=== PATIENT | female | born 1960 | race Caucasian/White ===

== ENCOUNTER 2022-04-05 10:07 | Emergency (ER) | payer SELFPAY ==
[~2022-04-05 10:07] MED LIST: MACROBID 100 M100 MG PO
[2022-04-05 10:52] LABS: HEMOGLOBIN 11.9 gm/dl (12.3-15.3); RED BLOOD COUNT 3.86 M/UL (4.00-5.10); WHITE BLOOD COUNT 2.9 K/UL (4.5-11.0)
[2022-04-05 12:02] LABS: BUN/CREATININE RATIO 22 (0-10)
== END 2022-04-05 15:31 | disposition short-term general hospital (02) ==
LOC: ER1 10:07
PROVIDERS: Physician Assistant
DX: I62.00 Nontraumatic subdural hemorrhage, unspecified (principal); D69.6 Thrombocytopenia, unspecified; D72.819 Decreased white blood cell count, unspecified; S80.12XA Contusion of left lower leg, initial encounter; F17.210 Nicotine dependence, cigarettes, uncomplicated; Z85.3 Personal history of malignant neoplasm of breast; Z90.13 Acquired absence of bilateral breasts and nipples; Z88.2 Allergy status to sulfonamides; X58.XXXA Exposure to other specified factors, initial encounter
CPT/HCPCS: 70450; 71045; 80053; 81001; 82550; 82553; 84484; 85025; 86850; 86900; 86901; 93005; 99285